=== PATIENT | male | born 1960 | race Caucasian/White ===

== ENCOUNTER 2018-11-25 18:36 | Emergency (ER) | payer BC ==
--- NOTE | 2018-11-25 19:28 | EDM.PDOC ---
ED HPI GENERAL MEDICAL PROBLEM - General Chief Complaint: ENT Problem Stated Complaint: EARS Time Seen by Provider: 11/25/18 19:25 Source of Information: Reports: Patient History Limitations: Reports: No Limitations - History of Present Illness INITIAL COMMENTS - FREE TEXT/NARRATIVE: pt feels like he has pressure behind his ears. He is also having a headache. He has had a fever on and off. His throat has been dry and has been sore. Onset: Gradual, Other (last 2 days. ) Duration: Hour(s): Location: Reports: Generalized, Other (pt has alot of body aches. ) Associated Symptoms: Reports: Fever/Chills, Other ( throat has been sore. ) Bilateral Ear Pain Score (Numeric/FACES): 8 - Related Data Allergies Allergy/AdvReac Type Severity Reaction Status Date / Time No Known Allergies Allergy Verified 11/25/18 18:49 Home Meds: Home Meds NK [No Known Home Meds] 11/25/18 [History] Past Medical History Psychiatric History: Reports: Anxiety Hematologic History: Reports: Blood Transfusion(s) - Past Surgical History GI Surgical History: Reports: Other (See Below) Other GI Surgeries/Procedures: abdomenal ulcers Social & Family History - Tobacco Use Smoking Status *Q: Never Smoker Second Hand Smoke Exposure: No - Caffeine Use Caffeine Use: Reports: Coffee, Tea - Alcohol Use Days Per Week of Alcohol Use: 0 - Recreational Drug Use Recreational Drug Use: No ED ROS ENT - Review of Systems Review Of Systems: See Below Constitutional: Reports: Fever, Chills, Malaise HEENT: Reports: Other ( ear pressure) Respiratory: Reports: No Symptoms Cardiovascular: Reports: No Symptoms Endocrine: Reports: No Symptoms GI/Abdominal: Reports: No Symptoms : Reports: No Symptoms Musculoskeletal: Reports: Other ( generalized body aches. ) Skin: Reports: No Symptoms ED EXAM, ENT - Physical Exam Exam: See Below Text/Narrative:: pt arrived with a sig headache, with alot of pressure. He has a feeling of stuffiness, he feels like his ears are plugged and his throat is sore and has a dry feeling. Exam Limited By: No Limitations General Appearance: Alert, Anxious, Moderate Distress, Other (pupils equql and reactive) Ears: Other ( small amount of fluid behind the drums ) Nose: Normal Inspection Mouth/Throat: Tonsillar Erythema, Tonsillar Exudates, Other ( this is on the left side. ) Head: Atraumatic Neck: Lymphadenopathy (L) Respiratory/Chest: No Respiratory Distress Cardiovascular: Regular Rate, Rhythm Course - Vital Signs Last Recorded V/S: Last Vital Signs Temp 37.9 C 11/25/18 18:56 Pulse 95 11/25/18 18:56 Resp 16 11/25/18 18:56 BP 145/73 H 11/25/18 18:56 Pulse Ox 97 11/25/18 18:56 - Orders/Labs/Meds Orders: Active Orders 24 hr Category Date Time Status CULTURE STREP A CONFIRMATION [] Stat Lab 11/25/18 19:25 Results STREP SCRN A RAPID W CULT CONF [] Stat Lab 11/25/18 19:25 Results Labs: Laboratory Tests 11/25/18 Range/Units 19:25 WBC 8.7 (4.5-11.0) K/uL RBC 4.70 (4.30-5.90) M/uL Hgb 13.2 (12.0-15.0) g/dL Hct 40.6 (40.0-54.0) % MCV 86 (80-98) fL MCH 28 (27-31) pg MCHC 33 (32-36) % Plt Count 219 (150-400) K/uL Neut % (Auto) 71 H (36-66) % Lymph % (Auto) 13 L (24-44) % Snyder % (Auto) 15 H (2-6) % Eos % (Auto) 1 L (2-4) % Baso % (Auto) 0 (0-1) % Meds: Medications Discontinued Medications Generic Name Dose Route Start Last Admin Trade Name Freq PRN Reason Stop Dose Admin Ketorolac Tromethamine 60 mg 11/25/18 20:03 11/25/18 20:14 Toradol IM 11/25/18 20:04 60 mg ONETIME ONE Administration - Re-Assessments/Exams Free Text/Narrative Re-Assessment/Exam: 11/25/18 21:08 strept is neg, wbc is not elevated. Departure - Departure Time of Disposition: 19:59 Disposition: Home, Self-Care 01 Condition: Fair Clinical Impression: Pharyngitis, Sinusitis, Serous otitis media - Discharge Information Referrals: PCP,None [Primary Care Provider] - Forms: ED Department Discharge Care Plan Goals: tylenol and motrin for the headache and body aches, clartin could be used for the stuffiness, amoxicillin 500mg qid for 10 days. - My Orders Last 24 Hours: My Active Orders 11/25/18 19:25 CULTURE STREP A CONFIRMATION [RM] Stat STREP SCRN A RAPID W CULT CONF [] Stat - Assessment/Plan Last 24 Hours: My Active Orders 11/25/18 19:25 CULTURE STREP A CONFIRMATION [] Stat STREP SCRN A RAPID W CULT CONF [] Stat
[2018-11-25] MEDS ORDERED: Ketorolac 60 MG/2 ML SDV IM ONE (20:03)
== END 2018-11-25 21:14 | disposition home or self-care (01) ==
LOC: JP.ED 18:36
DX: J02.9 Acute pharyngitis, unspecified (principal); J32.9 Chronic sinusitis, unspecified; H65.93 Unspecified nonsuppurative otitis media, bilateral
CPT/HCPCS: 36415; 85025; 87081; 87430; 96372; 99283; J1885